=== PATIENT | female | born 1965 | race Caucasian/White ===

== ENCOUNTER 2018-01-28 21:51 | Emergency (ER) | payer BC ==
[2018-01-28] MEDS ORDERED: OXYCODONE/APAP 5/325 TAB PO ONE (22:21)
--- NOTE | 2018-01-28 23:18 | EDPHY ---
General Time Seen by Provider: 01/28/18 22:20 Narrative: CHIEF COMPLAINT: Foot injury HISTORY OF PRESENT ILLNESS: Patient presents by private vehicle with spouse with complaints of foot injury. She reports that she slipped going down a step around 9:30 p.m. Tonight. She says that she does not know exactly what happened, but she felt a sudden onset of pain in the middle of the foot. It is severe, 10/10 prior to ibuprofen. Now 8/10. Unable to bear weight. Radiates into the ankle. No numbness or tingling. No weakness. She did fall and scraped her jones but complains of no bony tenderness of the jones or knee. She did not strike her head or lose consciousness. She has no injury elsewhere. No other associated complaints or modifying factors. DOMINANT EXTREMITY: Right-hand dominant ESTABLISHED ORTHOPEDIST: None REVIEW OF SYSTEMS: Ten systems reviewed and are negative unless otherwise noted in the HPI PAST MEDICAL HISTORY: No ongoing diagnoses PAST SURGICAL HISTORY: Partial colectomy SOCIAL HISTORY: Nonsmoker. Lives independently with her spouse. Recently moved from [place] FAMILY HISTORY: Noncontributory EXAMINATION: General Appearance: Alert, no distress Cardiovascular: Symmetric PT pulses. DP pulses 2+ in the left foot. Brisk cap refill the left foot. Neurological: A&O, light sensory symmetric, great toe strength symmetric Skin: Warm and dry, no rash. No puncture. No laceration. No abrasion to the foot. There is superficial abrasion to the left proximal jones. Extremities: Ecchymosis, edema and tenderness to the left midfoot over the lateral metatarsals. There is no tenderness of the malleoli. No tenderness of the left calcaneus. No tenderness of left proximal fibula. Range of motion of the ankle symmetric. All compartments are soft the left lower extremity. Psychiatric: Mood and affect normal DIFFERENTIAL DIAGNOSES: Including but not limited to sprain, strain, fracture, dislocation, subluxation MDM: 10:20 p.m. Mechanical fall this evening with unknown direction of injury to the foot. She does have left-sided midfoot pain, more lateral than medial. There is swelling and tenderness there. Suspect at least a sprain of the foot. There is no tenderness of the malleoli, jones or proximal fibula. X-ray will be obtained of the area of concern. She is resting in no distress but does have moderate pain. Ibuprofen has been taking earlier and I have ordered Percocet. 11:15 p.m. Small fracture off of the lateral portion of the navicular bone of the foot. No other acute findings. This does match clinically with the patient's pain and swelling. I have re-evaluated her and discussed this. She remains CMS intact. She will be placed in a boot and crutches. We discussed minimal weight -bearing, nonweightbearing of painful. We discussed mandatory follow up with Podiatry Orthopedics for definitive care. We discussed ice, elevation, anti- inflammatories and pain medication as needed. I have answered all her questions. She is comfortable this plan. Discharged home stable condition. SUPERVISION: None - Diagnostics Imaging Results: Imaging Impressions Foot X-Ray 01/28/18 22:06 Impression: Small dorsal chip avulsion fracture from the navicular bone. - History Smoking Status: Never smoked - Objective Vital Signs: Initial Vital Signs Temperature (C) 97.9 F 01/28/18 21:54 Heart Rate 86 01/28/18 21:54 Respiratory Rate 16 01/28/18 21:54 Blood Pressure 119/70 01/28/18 21:54 O2 Sat (%) 96 01/28/18 21:54 O2 Delivery Mode Room Air Allergies/Adverse Reactions: iodine Allergy (Verified 01/28/18 21:57) Home Medications: Medication Instructions Recorded Acid Lining Ironer 01/28/18 oxyCODONE HCL/ACETAMINOPHEN 1 each PO Q4-6PRN PRN #7 tablet 01/28/18 [Percocet 5-325 mg Tablet] Medications Given: Discontinued Medications Oxycodone/Acetaminophen (Percocet 5/325) 2 tab PO EDNOW ONE Stop: 01/28/18 22:22 Last Admin: 01/28/18 22:37 Dose: 2 tab Departure - Departure Disposition: Home, Routine, Self-Care Clinical Impression: Navicular fracture, foot Qualifiers: Encounter type: initial encounter Fracture type: closed Fracture alignment: displaced Laterality: left Qualified Code(s): S92.252A - Displaced fracture of navicular [scaphoid] of left foot, initial encounter for closed fracture Foot sprain Qualifiers: Encounter type: initial encounter Laterality: left Qualified Code(s): S93.602A - Unspecified sprain of left foot, initial encounter Condition: Good Instructions: Oxycodone/Acetaminophen (By mouth), Foot Fracture in Adults (ED) Additional Instructions: 1. Nonweightbearing if painful. Use her boot and crutches at all times 2. Ice and elevate often 3. Pain medication as provided as needed 4. Contact employment case manager and or orthopedist tomorrow morning for definitive care 5. I provided the on-call primary care physician for you to establish with 6. ED precautions as discussed Referrals: Shalonda Herrera MD [Medical Doctor] - As per Instructions Antonio Odonnell MD [Medical Doctor] - As per Instructions Derick Aceves DPM [Doctor of Podiatric Medicine] - As per Instructions Prescriptions: oxyCODONE HCL/ACETAMINOPHEN [Percocet 5-325 mg Tablet] 1 each PO Q4-6PRN PRN #7 tablet PRN Reason: Pain, Breakthrough
[2018-01-28] MEDS ORDERED: OXYCODONE/APAP 5/325MG PREPACK#4 BTL TAKEHOME ONE (23:21)
[2018-01-28 23:52] VITALS: BP 132/72
== END 2018-01-28 23:50 | disposition home or self-care (01) ==
DX: S92.252A Displaced fracture of navicular [scaphoid] of left foot, initial encounter for closed fracture (principal); W10.9XXA Fall (on) (from) unspecified stairs and steps, initial encounter
CPT/HCPCS: L4386

== ENCOUNTER → 2018-09-03 | Outpatient (CLI) | payer BC | LOC: FIMAGING 08:36 ==